=== PATIENT | female | born 1945 | race Two or more races ===

== ENCOUNTER 2019-11-03 15:02 | Inpatient (IN) | payer MEDICARE, OTHER ==
[~2019-11-03] VITALS: Ht 175.3 cm; Wt 77.1 kg
--- NOTE | 2019-11-04 00:45 | NUR ---
GPS ADMISSION NOTE: RECEIVED PT. FROM [facility]. PT. ARRIVED ON THIS UNIT AT 0045 VIA AMBULANCE. PT ADMITTED ON A 5150 HOLD FOR DTS. PER HOLD, PT. REPORTED ANXIETY AND SUICIDAL IDEATIONS FOR CUTTING HERSELF. THE 5150 WAS REVIEWED AND DOCUMENTATION IN THE 5150 HOLD APPEARS TO REFLECT THE PRESENTATION OF THE PATIENT.UPON FACE TO FACE ASSESSMENT PATIENT IS NOTED TO BE DISHEVELED, COOPERATIVE, FLAT AFFECT. PATIENT IS DISPLAYING NO S/S OF DISTRESS. PATIENT BREATHING IS UNLABORED WITH EUQAL RISE AND FALL OF THE CHEST. PT. IS A/OX4 Addendum: 11/04/19 at 0250 by BROOKLYNN ALCOCER RN ON ROOM AIR. PATIENT. DENIES SI/HI AT THIS TIME. PT. SIGNED AND COMPLETED PAPERWORK. ADVISED OF HOLD AND PATIENT RIGHTS BOOKLET GIVEN. UNDER [facility] AND MEDICAL CARE OF [facility]. BELONGINGS WERE INVENTORIED AND CHECKED FOR CONTRABAND ALL CONTRABAND REMOVED AND STORED IN PATIENT LOCKER. ORIENTED TO ROOM, FLOOR AND STAFF WITH ALL QUESTIONS ANSWERED. PT. EDUCATED ON USE OF CALL GILLIS. SIDE RAILS UP 2X FOR SAFETY, IN LOCKED AND LOW POSITION. WILL CONTINUE TO MONITOR FOR SAFETY AND BEHAVIOR
[2019-11-04] MEDS ORDERED: BLOOD SUGAR DIAGNOSTIC 1 EACH STRIP IN ONE (01:30)
[2019-11-04] MEDS ORDERED: MAG HYDROX/AL HYDROX/SIMETH 30 ML UDC PO PRN (01:30)
[2019-11-04] MEDS ORDERED: TEMAZEPAM 7.5 MG CAPSULE PO PRN (01:30)
[2019-11-04] MEDS ORDERED: MAGNESIUM HYDROXIDE 30 ML UDC PO PRN (01:30)
[2019-11-04] MEDS: ACETAMINOPHEN 325 MG TABLET PO PRN (01:57)
--- NOTE | 2019-11-04 01:57 | NUR ---
GPS RN NOTE: PAIN PT. C/O OF NECK PAIN 07/06. ADMINISTERED TYLENOL 650 MG PO PRN ORDERED. WILL CONTINUE TO MONITOR FOR SAFETY AND BEHAVIOR.
[2019-11-04] MEDS ORDERED: LEVO75TA7 PO (02:29)
[2019-11-04] MEDS ORDERED: FLUT1BLS13 IH (02:29)
[2019-11-04] MEDS ORDERED: LISI40TA4 PO (02:29)
[2019-11-04] MEDS ORDERED: LORA-259 PO (02:29)
[2019-11-04] MEDS ORDERED: FLUT1DIS5 INH (02:29)
[2019-11-04] MEDS ORDERED: FLUT16SP16 NS (02:29)
[2019-11-04] MEDS ORDERED: CALC-20 PO (02:29)
[2019-11-04] MEDS ORDERED: PROP10TA68 PO (02:29)
[2019-11-04] MEDS ORDERED: FEXO-65 PO (02:29)
[2019-11-04] MEDS ORDERED: EZET10TA32 PO (02:29)
[2019-11-04] MEDS ORDERED: PANT40TA4 PO (02:29)
[2019-11-04] MEDS ORDERED: LEVO100T9 PO (02:29)
[2019-11-04 02:30] VITALS: BP 160/78
--- NOTE | 2019-11-04 03:31 | NUR ---
GPS RN NOTE: CALLED DR. PIERRE FOR MED RECONCILIATION.
[2019-11-04 07:39] LABS: ALBUMIN 3.3 g/dL (3.4-5.0); BILIRUBIN,TOTAL 0.1 mg/dL (0.2-1.0); POTASSIUM 4.4 mmol/L (3.5-5.1); TOTAL PROTEIN, SERUM 6.6 g/dL (6.4-8.2)
[2019-11-04 08:00] VITALS: BP 160/74
[2019-11-04] MEDS: LORAZEPAM 0.5 MG TABLET PO PRN ×2 (10:08→17:02)
--- NOTE | 2019-11-04 10:08 | NUR ---
RN NOTE: ANXIETY PT REPORTING ANXIETY AND PANIC. PT TRIGGERED BY RECENT RELATIONSHIP STRESSORS. REPORTING UNCONTROLLED ANXIETY AND DEPRESSION. PT TEARFUL AND VISIBLY SHAKING. MEDICATED WITH ATIVAN 0.5 PO PRN.
--- NOTE | 2019-11-04 10:10 | NUR ---
RN NOTE: CONSENT FAXED TO PHARMACY FOR PHONG JALLOH AND RADHA.
[2019-11-04] MEDS: busPIRone 5 MG TABLET PO SCH ×3 (10:37→17:02)
[2019-11-04] MEDS: FLUOXETINE HCL 20 MG CAPSULE PO SCH ×2 (10:37→17:02)
[2019-11-04] MEDS: PROPRANOLOL HCL 10 MG TABLET PO SCH ×2 (12:54→17:02)
[2019-11-04] MEDS: LISINOPRIL (20MG) 20 MG TABLET PO SCH (12:55)
[2019-11-04] MEDS: FLUTICASONE/VILANTEROL 1 EACH BLST.W.DEV IH SCH (13:10)
--- NOTE | 2019-11-04 14:30 | NUR ---
RN NOTE: PT SLEEPING AFTER PRN ATIVAN AND ROUTINE MEDICATIONS ADMINISTERED. NO ACUTE DISTRESS NOTED.
[2019-11-04 16:00] VITALS: BP 134/75
[2019-11-04] MEDS ORDERED: FLUTICASONE/SALMETEROL 1 DISK IH SCH (17:00)
--- NOTE | 2019-11-04 17:02 | NUR ---
RN NOTE: ANXIETY PT C/O INCREASING ANXIETY. PT PRESENTS TEARFUL, DEPRESSED AND AGITATED. MEDICATED WITH ATIVAN PO PRN
[2019-11-04 20:51] VITALS: BP 126/63
[2019-11-04] MEDS: ARIPIPRAZOLE 2 MG TABLET PO SCH (21:05)
[2019-11-05 08:00] VITALS: BP 161/67
[2019-11-05] MEDS: LEVOTHYROXINE SODIUM 100 MCG TABLET PO SCH (08:10)
[2019-11-05] MEDS: busPIRone 5 MG TABLET PO SCH ×3 (08:10→17:15)
[2019-11-05] MEDS: PANTOPRAZOLE 40 MG TABLET.DR PO SCH (08:10)
[2019-11-05] MEDS: EZETIMIBE 10 MG TABLET PO SCH (08:10)
[2019-11-05] MEDS: CALCIUM CARB 600MG /VIT D 1 EACH TABLET PO SCH (08:10)
[2019-11-05] MEDS: FLUOXETINE HCL 20 MG CAPSULE PO SCH ×2 (08:11→17:16)
[2019-11-05] MEDS: LISINOPRIL (20MG) 20 MG TABLET PO SCH (08:11)
[2019-11-05] MEDS: PROPRANOLOL HCL 10 MG TABLET PO SCH ×2 (08:11→17:16)
[2019-11-05] MEDS: FLUTICASONE/VILANTEROL 1 EACH BLST.W.DEV IH SCH (08:13)
[2019-11-05] MEDS ORDERED: CLONIDINE HCL 0.1 MG TABLET PO PRN (09:00)
[2019-11-05] MEDS: LORAZEPAM 0.5 MG TABLET PO PRN ×3 (09:48→23:40)
--- NOTE | 2019-11-05 09:48 | NUR ---
RN NOTE: ANXIETY PT EXHIBITING INCREASED ANXIETY AND AGITATION. TEARFUL AND SHAKING. MEDICATED WITH ATIVAN PO PRN
--- NOTE | 2019-11-05 11:45 | NUR ---
FAMILY CONTACT: SW contacted pts daughter Marina ([phone]) and discussed pts discharge plan and provided her with updated information.
--- NOTE | 2019-11-05 13:14 | NUR ---
INITIAL DISCHARGE PLAN: Pt [place] to return home [address] [place], [address]. MARAL spoke with pts daughter Marina ([phone]) who agrees with discharge plan. MARAL will help form a safe and proper discharge in collaboration with .
[2019-11-05 16:00] VITALS: BP 143/60
--- NOTE | 2019-11-05 17:16 | NUR ---
RN NOTE; ANXIETY PT C/O INCREASING ANXIETY. REQUESTING ATIVAN. ATIVAN PO PRN ADMINISTERED
[2019-11-05 19:56] VITALS: BP 121/46
[2019-11-05] MEDS: ARIPIPRAZOLE 2 MG TABLET PO SCH (21:25)
--- NOTE | 2019-11-05 23:43 | NUR ---
GPS RN NOTES: PT WOKE UP AT 2335 COMPLAINING OF ANXIETY AND REQUESTING ATIVAN. ATIVAN 0.5MG, 1TAB GIVEN PO PRN ORDERED AT 2340. PT IS CURRENTLY LAYING ON BED. WILL CONTINUE TO MONITOR.
[2019-11-06 06:35] LABS: MAGNESIUM 2.2 mg/dL (1.8-2.4); PHOSPHORUS 3.3 mg/dL (2.5-4.9); POTASSIUM 4.5 mmol/L (3.5-5.1)
--- NOTE | 2019-11-06 06:41 | NUR ---
GPS RN CLOSING NOTES: PT IS LAYING ON BED AWAKE, ALERT AND ORIENTED. CALM AND COOPERATIVE, NO BEHAVIORAL ISSUES AT THIS TIME. SLEPT FOR 8 HR. NO S/S OF DISTRESS, RESPIRATION EVEN AND UNLABORED WITH EQUAL RISE AND FALL OF THE CHEST ON ROOM AIR. ALL PT CARE NEEDS MET ANTICIPATED. WILL CONTINUE TO MONITOR AND ENDORSE TO AM SHIFT.
[2019-11-06 06:42] LABS: THYROID STIMULATING HORMONE 2.019 uIU/mL (0.358-3.74); URIC ACID 4.2 mg/dL (2.6-7.2)
[2019-11-06] MEDS: PANTOPRAZOLE 40 MG TABLET.DR PO SCH (07:41)
[2019-11-06] MEDS: LEVOTHYROXINE SODIUM 75 MCG TABLET PO SCH (07:41)
[2019-11-06 08:00] VITALS: BP 157/79
[2019-11-06] MEDS: FLUTICASONE/VILANTEROL 1 EACH BLST.W.DEV IH SCH (08:10)
[2019-11-06] MEDS: CALCIUM CARB 600MG /VIT D 1 EACH TABLET PO SCH (08:11)
[2019-11-06] MEDS: busPIRone 5 MG TABLET PO SCH ×3 (08:11→16:24)
[2019-11-06] MEDS: LISINOPRIL (20MG) 20 MG TABLET PO SCH (08:11)
[2019-11-06] MEDS: EZETIMIBE 10 MG TABLET PO SCH (08:11)
[2019-11-06] MEDS: PROPRANOLOL HCL 10 MG TABLET PO SCH ×2 (08:12→16:25)
[2019-11-06] MEDS: FLUOXETINE HCL 20 MG CAPSULE PO SCH ×2 (08:13→16:24)
--- NOTE | 2019-11-06 10:02 | NUR ---
FAMILY CONTACT: SW received a teddy from INTAKE department regarding pts son Abad at [phone] calling to ask general questions and asking when pts discharge is. SW contacted pts daughter Marina ([phone]) regarding her communication with Abad. She states she is "agustin" communicating with her brother and MARAL informed her that due to Marina being the person to notify and pt signing release of information for only Marina and Jagruti, per HIPAA SW is only authorized to speak with her regarding pts treatment and Jagruti unless pt gives permission to speak to her son Abad. Daughter understood and stated she will be communicating with her brother Abad regarding pts treatment and discharge plan.
--- NOTE | 2019-11-06 15:17 | NUR ---
INDIVIDUAL INTERVENTION: SW met with pt at bedside and assigned self- monitoring techniques to assist with pts anxiety triggers. SW facilitated deep breathing exercises with pt. Pt stated that she remains depressed but denies suicidal ideation and states that she does not know why she continues to feel like she is having panic attacks. Pt is isolative and withdrawn and states she rather stay in her room. SW encouraged participation in group milieu, however, pt refuses.
[2019-11-06 16:00] VITALS: BP 154/60
--- NOTE | 2019-11-06 16:30 | NUR ---
GPS RN NOTE: TOVA ROB NOTIFIED OF PT LAB RESULT SODIUM LEVEL 128 NO NEW ORDERS AT THIS TIME
[2019-11-06 20:19] VITALS: BP 117/54
[2019-11-06] MEDS: ARIPIPRAZOLE 2 MG TABLET PO SCH (21:07)
[2019-11-06] MEDS: LORAZEPAM 0.5 MG TABLET PO PRN (22:36)
[2019-11-06 22:37] VITALS: BP 133/61
--- NOTE | 2019-11-06 22:38 | NUR ---
GPS RN NOTES: ANXIOUS PT C/O OF FEELING ANXIOUS. PT REQUESTED ATIVAN. VITALS TAKEN WNL. NO SOB. NO RESP DISTRESS. OFFERED ATIVAN 0.5MG PO PRN ORDERED. PT AGREED AND TOLERATED MEDICATION WELL. CONTINUE TO MONITOR
[2019-11-07 07:06] LABS: CALCIUM, SERUM 9.4 mg/dL (8.5-10.1); CREATININE 1.1 mg/dL (0.6-1.3); POTASSIUM 4.4 mmol/L (3.5-5.1)
[2019-11-07] MEDS: PANTOPRAZOLE 40 MG TABLET.DR PO SCH (07:38)
[2019-11-07] MEDS: LEVOTHYROXINE SODIUM 100 MCG TABLET PO SCH (07:38)
[2019-11-07 08:00] VITALS: BP 163/74
[2019-11-07] MEDS: LISINOPRIL (20MG) 20 MG TABLET PO SCH (08:08)
[2019-11-07] MEDS: EZETIMIBE 10 MG TABLET PO SCH (08:10)
[2019-11-07] MEDS: PROPRANOLOL HCL 10 MG TABLET PO SCH ×2 (08:10→16:39)
[2019-11-07] MEDS: CALCIUM CARB 600MG /VIT D 1 EACH TABLET PO SCH (08:10)
[2019-11-07] MEDS: FLUOXETINE HCL 20 MG CAPSULE PO SCH ×2 (08:10→16:39)
[2019-11-07] MEDS: busPIRone 5 MG TABLET PO SCH ×3 (08:10→16:39)
[2019-11-07] MEDS: FLUTICASONE/VILANTEROL 1 EACH BLST.W.DEV IH SCH (08:13)
--- NOTE | 2019-11-07 14:54 | NUR ---
GROUP THERAPY: SW encouraged pt to attend group therapy on this present day. Pt refused stating she wanted to stay in her room and read a magazine.
[2019-11-07 16:00] VITALS: BP 139/67
[2019-11-07] MEDS: HYDROCORTISONE 1% CREAM 28.35 GM TUBE TP SCH ×2 (16:37→21:18)
[2019-11-07] MEDS: LORAZEPAM 0.5 MG TABLET PO PRN (18:32)
--- NOTE | 2019-11-07 18:35 | NUR ---
gps rn note: pt feeling anxious crying at this time ativan 0.5 mg po prn given will continue monitoring
[2019-11-07 20:20] VITALS: BP 109/53
[2019-11-08] MEDS: PANTOPRAZOLE 40 MG TABLET.DR PO SCH (07:11)
[2019-11-08] MEDS: LEVOTHYROXINE SODIUM 100 MCG TABLET PO SCH (07:11)
[2019-11-08] MEDS: LEVOTHYROXINE SODIUM 75 MCG TABLET PO SCH (07:30)
[2019-11-08 07:46] LABS: CALCIUM, SERUM 9.3 mg/dL (8.5-10.1); POTASSIUM 4.4 mmol/L (3.5-5.1)
--- NOTE | 2019-11-08 07:59 | NUR ---
RN-CO: SYNTHROID WAS GIVEN YESTERDAY.
[2019-11-08 08:00] VITALS: BP 145/64
[2019-11-08] MEDS: HYDROCORTISONE 1% CREAM 28.35 GM TUBE TP SCH ×2 (08:01→17:24)
[2019-11-08] MEDS: FLUTICASONE/VILANTEROL 1 EACH BLST.W.DEV IH SCH (08:01)
[2019-11-08] MEDS: EZETIMIBE 10 MG TABLET PO SCH (08:05)
[2019-11-08] MEDS: CALCIUM CARB 600MG /VIT D 1 EACH TABLET PO SCH (08:05)
[2019-11-08] MEDS: busPIRone 5 MG TABLET PO SCH ×3 (08:05→16:37)
[2019-11-08] MEDS: PROPRANOLOL HCL 10 MG TABLET PO SCH ×2 (08:07→16:37)
[2019-11-08] MEDS: FLUOXETINE HCL 20 MG CAPSULE PO SCH ×2 (08:08→16:37)
[2019-11-08] MEDS: LISINOPRIL (20MG) 20 MG TABLET PO SCH (08:08)
[2019-11-08 16:00] VITALS: BP 116/62
[2019-11-08] MEDS: LORAZEPAM 0.5 MG TABLET PO PRN (18:52)
--- NOTE | 2019-11-08 18:55 | NUR ---
RN-CO: ATIVAN GIVEN FOR ANXIETY.
[2019-11-08 20:00] VITALS: BP 144/68
--- NOTE | 2019-11-09 06:44 | NUR ---
GPS RN CLOSING NOTES: PT AWAKE, ALERT AND ORIENTED X3. NO BEHAVIORAL ISSUES THIS SHIFT. PT SLEPT FOR 8 HR. STATED "I HAD A GOOD NIGHT SLEEP AND THIS IS THE FIRST IN A LONG TIME". NO S/S OF DISTRESS AT THIS TIME. RESPIRATION EVEN AND UNLABORED WITH EQUAL RISE AND FALL OF THE CHEST ON ROOM AIR. PT IS MED COMPLIANT. ALL PT CARE NEEDS MET ANTICIPATED. WILL CONTINUE TO MONITOR AND ENDORSE TO AM SHIFT
[2019-11-09] MEDS: LEVOTHYROXINE SODIUM 100 MCG TABLET PO SCH (07:53)
[2019-11-09] MEDS: PANTOPRAZOLE 40 MG TABLET.DR PO SCH (07:53)
[2019-11-09] MEDS: FLUOXETINE HCL 20 MG CAPSULE PO SCH ×2 (08:10→16:24)
[2019-11-09] MEDS: CALCIUM CARB 600MG /VIT D 1 EACH TABLET PO SCH (08:10)
[2019-11-09] MEDS: EZETIMIBE 10 MG TABLET PO SCH (08:10)
[2019-11-09] MEDS: busPIRone 5 MG TABLET PO SCH ×3 (08:10→16:24)
[2019-11-09] MEDS: PROPRANOLOL HCL 10 MG TABLET PO SCH ×2 (08:11→16:24)
[2019-11-09] MEDS: LISINOPRIL (20MG) 20 MG TABLET PO SCH (08:11)
[2019-11-09 08:15] LABS: POTASSIUM 4.9 mmol/L (3.5-5.1)
[2019-11-09] MEDS: FLUTICASONE/VILANTEROL 1 EACH BLST.W.DEV IH SCH (08:18)
[2019-11-09] MEDS: HYDROCORTISONE 1% CREAM 28.35 GM TUBE TP SCH ×2 (08:18→16:29)
[2019-11-09 16:00] VITALS: BP_SYST 116; BP_DIAS 57; BP_DIAS 67
[2019-11-09] MEDS: LORAZEPAM 0.5 MG TABLET PO PRN (20:34)
--- NOTE | 2019-11-09 20:35 | NUR ---
GPS RN NOTE: AT 2033 PT WAS GIVEN ATIVAN 0.5MG 1 TAB PO D/T COMPLAINS OF ANXIETY. PT IS CURRENTLY LAYING ON BED. WILL CONTINUE TO MONITOR.
[2019-11-09 21:00] VITALS: BP 113/54
--- NOTE | 2019-11-10 06:33 | NUR ---
GPS RN CLOSING NOTES: PT AWAKE, ALERT AND ORIENTED X3. AMBULATING IN HALLWAY. NO BEHAVIORAL ISSUES THIS SHIFT. PT SLEPT FOR 8 HR. NO S/S OF DISTRESS AT THIS TIME. RESPIRATION EVEN AND UNLABORED WITH EQUAL RISE AND FALL OF THE CHEST ON ROOM AIR. ALL PT CARE NEEDS MET ANTICIPATED. WILL CONTINUE TO MONITOR AND ENDORSE TO AM SHIFT
[2019-11-10 07:58] LABS: CALCIUM, SERUM 9.1 mg/dL (8.5-10.1); CREATININE 1.1 mg/dL (0.6-1.3); POTASSIUM 5.2 mmol/L (3.5-5.1)
[2019-11-10 08:00] VITALS: BP 114/56
[2019-11-10] MEDS: LEVOTHYROXINE SODIUM 75 MCG TABLET PO SCH (08:04)
[2019-11-10] MEDS: busPIRone 5 MG TABLET PO SCH ×3 (08:04→17:00)
[2019-11-10] MEDS: EZETIMIBE 10 MG TABLET PO SCH (08:04)
[2019-11-10] MEDS: CALCIUM CARB 600MG /VIT D 1 EACH TABLET PO SCH (08:04)
[2019-11-10] MEDS: LISINOPRIL (20MG) 20 MG TABLET PO SCH (08:04)
[2019-11-10] MEDS: PROPRANOLOL HCL 10 MG TABLET PO SCH ×2 (08:05→17:00)
[2019-11-10] MEDS: PANTOPRAZOLE 40 MG TABLET.DR PO SCH (08:05)
[2019-11-10] MEDS: FLUOXETINE HCL 20 MG CAPSULE PO SCH ×2 (08:05→17:00)
[2019-11-10] MEDS: HYDROCORTISONE 1% CREAM 28.35 GM TUBE TP SCH ×2 (08:07→17:01)
[2019-11-10] MEDS: FLUTICASONE/VILANTEROL 1 EACH BLST.W.DEV IH SCH (08:36)
--- NOTE | 2019-11-10 13:47 | NUR ---
RN NOTES URINE COLLECTED, CALLED LAB AND SPOKE TO YULISSA, INFORMED SPECIMEN READY FOR TICKET SELLER.
[2019-11-10 16:00] VITALS: BP 115/58
[2019-11-10 19:34] VITALS: BP 120/58
[2019-11-10] MEDS: LORAZEPAM 0.5 MG TABLET PO PRN (19:49)
[2019-11-11] MEDS: PANTOPRAZOLE 40 MG TABLET.DR PO SCH (06:55)
[2019-11-11] MEDS: LEVOTHYROXINE SODIUM 75 MCG TABLET PO SCH (06:55)
[2019-11-11] MEDS: LEVOTHYROXINE SODIUM 100 MCG TABLET PO SCH (07:30)
[2019-11-11 08:00] VITALS: BP 115/57
[2019-11-11 08:28] LABS: CALCIUM, SERUM 9.5 mg/dL (8.5-10.1); POTASSIUM 4.4 mmol/L (3.5-5.1)
[2019-11-11] MEDS: PROPRANOLOL HCL 10 MG TABLET PO SCH ×2 (08:29→16:53)
[2019-11-11] MEDS: LISINOPRIL (20MG) 20 MG TABLET PO SCH (08:29)
[2019-11-11] MEDS: CALCIUM CARB 600MG /VIT D 1 EACH TABLET PO SCH (08:29)
[2019-11-11] MEDS: EZETIMIBE 10 MG TABLET PO SCH (08:30)
[2019-11-11] MEDS: FLUOXETINE HCL 20 MG CAPSULE PO SCH ×2 (08:30→16:51)
[2019-11-11] MEDS: busPIRone 5 MG TABLET PO SCH ×3 (08:30→16:51)
[2019-11-11] MEDS: FLUTICASONE/VILANTEROL 1 EACH BLST.W.DEV IH SCH (08:39)
[2019-11-11] MEDS: HYDROCORTISONE 1% CREAM 28.35 GM TUBE TP SCH ×2 (08:39→17:42)
[2019-11-11] MEDS: ACETAMINOPHEN 325 MG TABLET PO PRN ×2 (09:35→16:52)
--- NOTE | 2019-11-11 09:36 | NUR ---
RN NOTE: PAIN PT C/O 3/10 LOWER BACK PAIN. MEDICATED WITH TYLENOL 650MG PO PRN
--- NOTE | 2019-11-11 15:51 | NUR ---
MARAL FAMILY CONTACT: SW spoke with patient's daughter, Marina ([phone]) regarding patient's discharge plan for tomorrow, and she is in agreement. Marina stated she will come chicken picker the patient tomorrow morning and take her back home. This process description writer later received a call from patients son, Mikey ([phone]) who stated he received information regarding the discharge from his sister, Marina and shared that he will also be coming with her to chicken picker the patient tomorrow morning around 10AM. Mikey stated that he arranged for the patient to follow up with a therapist Leslie Lundberg LCSW ([phone]) weekly, and will make an appointment for the patient this week upon her arrival back home.
--- NOTE | 2019-11-11 15:54 | NUR ---
SW DISCHARGE PLANNING: SW called patient's Forestry Adviser is Dr. Werner Cronin ([phone]) [address] [address] numerous times throughout the day today and have been unsuccessful with speaking to someone to make an appointment. Telephone rings without an answer and unable to leave a message.
[2019-11-11 16:00] VITALS: BP 122/60
--- NOTE | 2019-11-11 16:54 | NUR ---
RN NOTE: PAIN PT C/O 10 LOWER BACK PAIN. MEDICATED WTIH TYLENOL PO PRN AND ICE PACK
[2019-11-11 19:44] VITALS: BP 141/65
[2019-11-11] MEDS: LORAZEPAM 0.5 MG TABLET PO PRN (20:45)
--- NOTE | 2019-11-11 20:47 | NUR ---
GPS RN NOTE: ANXIETY PT STATED SHE WAS FEELING SLIGHTLY ANXIOUS, AND REQUESTED ATIVAN TO HELP HER WITH THE ANXIETY AND TO BE ABLE TO GET SOME SLEEP. VITAL SIGNS STABLE, ADMINISTERED ATIVAN PRN @ 5, WILL REASSESS AND CONTINUE TO MONITOR Q15MIN FOR SAFETY AND BEHAVIOR.
[2019-11-12] MEDS: LEVOTHYROXINE SODIUM 75 MCG TABLET PO SCH (07:58)
[2019-11-12] MEDS: PANTOPRAZOLE 40 MG TABLET.DR PO SCH (07:58)
[2019-11-12 08:00] VITALS: BP 129/76
[2019-11-12] MEDS: FLUTICASONE/VILANTEROL 1 EACH BLST.W.DEV IH SCH (08:24)
[2019-11-12] MEDS: HYDROCORTISONE 1% CREAM 28.35 GM TUBE TP SCH (08:24)
[2019-11-12] MEDS: CALCIUM CARB 600MG /VIT D 1 EACH TABLET PO SCH (08:25)
[2019-11-12] MEDS: EZETIMIBE 10 MG TABLET PO SCH (08:25)
[2019-11-12] MEDS: busPIRone 5 MG TABLET PO SCH (08:25)
[2019-11-12] MEDS: FLUOXETINE HCL 20 MG CAPSULE PO SCH (08:26)
[2019-11-12] MEDS: PROPRANOLOL HCL 10 MG TABLET PO SCH (08:26)
[2019-11-12 08:27] VITALS: BP 129/76
[2019-11-12] MEDS: LISINOPRIL (20MG) 20 MG TABLET PO SCH (08:27)
--- NOTE | 2019-11-12 09:09 | NUR ---
DISCHARGE NOTE: Pt will be discharged today back home [address] [place] [address] ([phone]). Patients daughter, Marina ([phone]) will be provided transportation for the patient tomorrow back home at 10AM. Patients son, Mikey ([phone]) is also aware and agreeable with discharge plan. Patient is aware and agreeable with discharge plan. Patient presents alert and oriented x4 and denies suicidal or homicidal ideation. Patient presents with euthymic mood and congruent affect at the time of discharge. Patient was referred to [facility] ([phone]) [facility]aged [facility] for intake evaluation for outpatient psychiatry on Monday via Telehealth ([phone]) [address] [facility] [address] with Ned pyrotechnician. Patient will be following up with her Barrel Racer is Dr. Werner Cronin ([phone]) [address] [place] [id number]. Patient will also be seeing a therapist weekly with Leslie Lundberg LCSW ([phone]).
--- NOTE | 2019-11-12 11:20 | NUR ---
EMAIL OPERATIONS MANAGER NOTE: 74 YEAR OLD FEMALE DISCHARGED HOME IN STABLE CONDITION. VSS, AFEBRILE. NO SOB NOTED. PT DENIES CURRENT SI/HI AND INSTRUCTED TO GO TO THE NEAREST ER OR CALL 911 IF SI RETURNS. PT COMPLIANT WITH MEDICATION ADMINISTRATION AND PLAN OF CARE. PSYCHIATRIC TREATMENT PLANS COMPLETE. MEDICAL TREATMENT PLANS CONTINUED AND DEFERRED FOR CONTINUAL TREATMENT. PT TO FOLLOW UP WITH OUTSIDE PSYCHIATRIST AND MEDICAL PHYSICIAN WITHIN ONE WEEK FOR CONTINUED CARE. WOUND CARE PICTURES TAKEN. DISCHARGE PAPERWORK SIGNED. EXITCARE EXPLAINED TO PT AND PAPERWORK SIGNED BY PT. PATIENT ID BAND REMOVED. TRANSFER OF RESPONSIBILITY SIGNED BY PT'S SON. PT LEFT THE UNIT AMBULATORY AND IN PERSONAL VECHICLE AT 1120.
== END 2019-11-12 11:20 | disposition home or self-care (01) | DRG 885 ==
LOC: GPS 11-04 00:37
PROVIDERS: ADMIT Psychiatry & Neurology Psychiatry; ATTEND Nurse Practitioner Acute Care
DX: F33.2 Major depressive disorder, recurrent severe without psychotic features (principal); F23 Brief psychotic disorder; E22.2 Syndrome of inappropriate secretion of antidiuretic hormone; E44.1 Mild protein-calorie malnutrition; F41.9 Anxiety disorder, unspecified; R73.9 Hyperglycemia, unspecified; E88.09 Other disorders of plasma-protein metabolism, not elsewhere classified; F43.10 Post-traumatic stress disorder, unspecified; J44.9 Chronic obstructive pulmonary disease, unspecified; K21.9 Gastro-esophageal reflux disease without esophagitis; K22.70 Barrett's esophagus without dysplasia; M81.0 Age-related osteoporosis without current pathological fracture; L25.9 Unspecified contact dermatitis, unspecified cause; M19.90 Unspecified osteoarthritis, unspecified site; I10 Essential (primary) hypertension; E78.5 Hyperlipidemia, unspecified; E03.9 Hypothyroidism, unspecified; K64.9 Unspecified hemorrhoids; G47.33 Obstructive sleep apnea (adult) (pediatric); Z88.0 Allergy status to penicillin
CPT/HCPCS: 36415; 80048-TC; 80053-TC; 80061-TC; 82962-TC; 83735-TC; 83935-TC; 84100-TC; 84300-TC; 84443-TC; 84550-TC; 87081-TC